=== PATIENT | female | born 1970 | race Caucasian/White ===

== ENCOUNTER → 2021-07-06 | Outpatient (CLI) | payer OTHER | LOC: WCC 07:20 | DX: T81.31XA Disruption of external operation (surgical) wound, not elsewhere classified, initial encounter (principal); M79.7 Fibromyalgia; G35 Multiple sclerosis; G89.29 Other chronic pain; F41.9 Anxiety disorder, unspecified; I10 Essential (primary) hypertension; A41.51 Sepsis due to Escherichia coli [E. coli]; B95.2 Enterococcus as the cause of diseases classified elsewhere; Z93.3 Colostomy status; Z16.21 Resistance to vancomycin; Z87.891 Personal history of nicotine dependence ==

== ENCOUNTER → 2021-07-13 | Outpatient (CLI) | payer OTHER | LOC: WCC 06:49 | DX: T81.31XD Disruption of external operation (surgical) wound, not elsewhere classified, subsequent encounter (principal); M79.7 Fibromyalgia; G35 Multiple sclerosis; G89.29 Other chronic pain; F41.9 Anxiety disorder, unspecified; I10 Essential (primary) hypertension; G89.18 Other acute postprocedural pain; B95.2 Enterococcus as the cause of diseases classified elsewhere; A41.51 Sepsis due to Escherichia coli [E. coli]; Z16.21 Resistance to vancomycin; Z93.3 Colostomy status | CPT/HCPCS: G0463 ==

== ENCOUNTER → 2021-07-25 | Outpatient (CLI) | payer OTHER | LOC: WCC 07:25 | DX: T81.31XD Disruption of external operation (surgical) wound, not elsewhere classified, subsequent encounter (principal); M79.7 Fibromyalgia; G35 Multiple sclerosis; G89.29 Other chronic pain; F41.9 Anxiety disorder, unspecified; I10 Essential (primary) hypertension; G89.18 Other acute postprocedural pain; B95.2 Enterococcus as the cause of diseases classified elsewhere; A41.51 Sepsis due to Escherichia coli [E. coli]; Z93.3 Colostomy status; Z16.21 Resistance to vancomycin | CPT/HCPCS: G0463 ==